=== PATIENT | female | born 1970 | race Two or more races ===

== ENCOUNTER 2024-12-09 06:39 | Day surgery (SDC) | payer OTHER ==
[~2024-12-09] VITALS: Ht 149.9 cm; Wt 59.1 kg
[~2024-12-09 06:39] MED LIST: FERR-72 PO; LORA10TA7 PO; MONT-40 PO; PANT40TA54 PO
[2024-12-09] MEDS ORDERED: BENZOCAINE 20% 50 MCG/SPRAY 57 GM TP ONE (06:40)
[2024-12-09] MEDS ORDERED: LIDOCAINE 2% 11 ML JELLY TP ONE (06:40)
[2024-12-09] MEDS ORDERED: LIDOCAINE 4% 50 ML SOLUTION TP ONE (06:40)
[2024-12-09] MEDS ORDERED: ALBUTEROL SULFATE 2.5 MG/0.5 ML NEB SOLUTION NEB ONE (06:40)
[2024-12-09] MEDS ORDERED: SODIUM CHLORIDE 0.9% 1,000 ML ONE ×2 (07:40→09:42)
[2024-12-09] MEDS: SODIUM CHLORIDE 0.9% 1,000 ML IV ONE (08:15)
[2024-12-09] MEDS ORDERED: MIDAZOLAM HCL 2 MG/2 ML VIAL ONE (08:49)
[2024-12-09] MEDS ORDERED: FentaNYL CITRATE PF 100 MCG/2 ML VIAL ONE (08:49)
[2024-12-09 09:45] VITALS: PULSE 85; RESP 20; O2SAT 98
[2024-12-09] MEDS ORDERED: MethylPREDNISolone SOD SUCC 125 MG/2 ML VIAL ONE (10:19)
[2024-12-09] MEDS: MethylPREDNISolone SOD SUCC 125 MG/2 ML VIAL IVP ONE (10:22)
== END 2024-12-09 13:20 | disposition home or self-care (01) ==
LOC: SURGERY 06:39
PROVIDERS: ATTEND Internal Medicine Critical Care Medicine
DX: R05.3 Chronic cough (principal); J38.4 Edema of larynx; B37.0 Candidal stomatitis; E70.0 Classical phenylketonuria; R91.8 Other nonspecific abnormal finding of lung field; Z91.012 Allergy to eggs; Z72.89 Other problems related to lifestyle; Z87.01 Personal history of pneumonia (recurrent); G47.30 Sleep apnea, unspecified; Z98.890 Other specified postprocedural states
CPT/HCPCS: 31623; 87206; 87101; 87220; 87070; 88108; 31624; 71045; 87015; J3010; J2250; J2919; J7030; J7613; Z7610